=== PATIENT | female | born 2000 | race Native Hawaiian/Other Pacific Islander ===

== ENCOUNTER 2019-02-23 16:52 | Emergency (ER) | payer OTHER ==
[2019-02-23 17:17] VITALS: BP 147/94
--- NOTE | 2019-02-23 18:36 | ED Physician Documentation ---
PD HPI PED ILLNESS - Stated complaint Stated Complaint: THROAT PX - Chief complaint Chief Complaint: Heent - History obtained from History obtained from: Patient - History of Present Illness Timing - onset: Other (2 days of sore throat and loss of voice without fevers, chills, runny nose. No possibility of . Home is in [place], she is here on a [employer] [place].) Review of Systems Constitutional: denies: Fever, Chills Nose: denies: Rhinorrhea / runny nose, Congestion Throat: reports: Sore throat PD PAST MEDICAL HISTORY - Past Medical History Past Medical History: No - Past Surgical History Past Surgical History: No - Present Medications Home Medications: Ambulatory Orders Medication Instructions Recorded Confirmed predniSONE [Deltasone] 60 mg PO DAILY 5 Days #15 tablet 02/23/19 - Allergies Allergies/Adverse Reactions: Allergies Allergy/AdvReac Type Severity Reaction Status Date / Time No Known Drug Allergies Allergy Verified 02/23/19 17:12 - Social History Does the pt smoke?: No Smoking Status: Never smoker Does the pt drink ETOH?: No Does the pt have substance abuse?: No - Immunizations Immunizations are current?: Yes - POLST Patient has POLST: No PD ED PE NORMAL - Vitals Vital signs reviewed: Yes - General General: Alert and oriented X 3, Other (Laryngitic voice) - HEENT HEENT: Other (Red tonsillar pillars but without swelling or exudates, no cervical adenopathy.) - Neck Neck: Supple, no meningeal sign, No bony TTP - Derm Derm: No rash - Neuro Neuro: Alert and oriented X 3 Results - Vitals Vitals: Vital Signs - 24 hr 02/23/19 17:12 Temperature 36.9 C Heart Rate 63 Respiratory 16 Rate Blood Pressure 147/94 H O2 Saturation 4 L - Labs Labs: Laboratory Tests 02/23/19 17:15 Group A Strep Rapid Negative Departure - Departure Disposition: 01 Home, Self Care Clinical Impression: Acute viral laryngitis Condition: Good Record reviewed to determine appropriate education?: Yes Instructions: ED Laryngitis Prescriptions: predniSONE [Deltasone] 60 mg PO DAILY 5 Days #15 tablet Comments: We will culture your throat, and in the unlikely event that a bacterial pathogen is isolated we will contact you in about 48 hours. Return for new or worsening symptoms. You can take ibuprofen as needed for the pain. Drink plenty of fluids.
== END 2019-02-23 18:38 | disposition home or self-care (01) ==
LOC: ED 16:52
DX: J04.0 Acute laryngitis (principal); B97.89 Other viral agents as the cause of diseases classified elsewhere
CPT/HCPCS: 87070; 87077; 87430; 99283